=== PATIENT | male | born 1980 | race Two or more races ===

== ENCOUNTER 2019-09-20 15:40 | Emergency (ER) | payer BC ==
[2019-09-20 16:55] LABS: ABS Eosinophils 0.3 10^3/ul (0-0.6); ABS Lymphocytes 1.9 10^3/ul (1.0-4.8); ABS Monocytes 0.7 10^3/ul (0-0.8); ABS Neutrophils 3.2 10^3/ul (1.5-7.7); Eosinophil % 4.2 %; Hematocrit 42 % (42-52); Lymphocyte % 30.7 %; Mean Corpuscular HGB Conc 36 g/dL (31-36); Mean Corpuscular Hemoglobin 32 pg (27-31); Mean Corpuscular Volume 90 fL (80-94); Mean Platelet Volume 7.6 fL (7.4-10.4); Nucleated Red Blood Cells % 0.1; Platelet Count 204 10^3/uL (150-450); Red Blood Count 4.67 10^6 /uL (4.18-5.48); Red Cell Distribution Width 13 % (10-15); White Blood Count 6.1 10^3/uL (3.5-10.8)
[2019-09-20 17:11] LABS: ALT 39 U/L (7-52); Albumin 4.7 g/dL (3.2-5.2); Albumin/Globulin Ratio 1.8 (1-3); Alkaline Phosphatase 44 U/L (34-104); BUN/Creatinine Ratio 17.5 (8-20); Blood Urea Nitrogen 18 mg/dL (6-24); C Reactive Protein 3.93 mg/L (<8.01); CO2 Carbon Dioxide 28 mmol/L (22-32); Calcium 9.8 mg/dL (8.6-10.3); Chloride 105 mmol/L (101-111); EGFR African American 98.9 (>60); EGFR Non-African American 81.7 (>60); Globulin 2.6 g/dL (2-4); Glucose 83 mg/dL (70-100); Sodium 139 mmol/L (135-145); Total Protein 7.3 g/dL (6.4-8.9)
[2019-09-20 17:59] LABS: Anion Gap 6 mmol/L (2-11)
[2019-09-20] MEDS ORDERED: Levalbuterol 1.25MG/0.5ML NEB INH ONE (19:31)
[2019-09-20] MEDS ORDERED: Dexamethasone TAB* 4 MG PO ONE (19:32)
--- NOTE | 2019-09-20 19:46 | ED ---
Respiratory - HPI Summary HPI Summary: 38-year-old male presents with cough for the past week. Has a history of asthma. States has been smoking occasionally and that has made the cough worst. Has been using his inhaler with minimal relief. States cough sometimes dry and sometimes productive. He denies any fevers or chills. No abdominal pain. no n/v. Denies any chest pain. He states he feels bronchoconstrictive. denies any sore throat. admits to occasionally shortness of breath when he coughs. he does not vape. - History of Current Complaint Chief Complaint: EDShortnessOfBreath Stated Complaint: COUGH/CONGESTION/SOB PER PT Time Seen by Provider: 09/20/19 19:22 Pain Intensity: 1 Sputum Amount: Small Sputum Color: Green - Allergy/Home Medications Allergies/Adverse Reactions: Allergies Allergy/AdvReac Type Severity Reaction Status Date / Time No Known Allergies Allergy Verified 09/20/19 15:45 Home Medications: Home Medications Albuterol HFA INHALER* [Ventolin HFA Inhaler*] 1 - 2 puff INH Q4HR PRN 09/20/19 [History Confirmed 09/20/19] PMH/Surg Hx/FS Hx/Imm Hx Endocrine/Hematology History: Denies: Hx Anticoagulant Therapy Respiratory History: Reports: Hx Asthma - INTERMITTENT - Immunization History Date of Influenza Vaccine: Fall 2018 Infectious Disease History: No Infectious Disease History: Denies: Traveled Outside the [place] in Last 30 Days - Family History Known Family History: Positive: Non-Contributory - Social History Alcohol Use: Weekly Substance Use Type: Reports: None Hx Tobacco Use: Yes Smoking Status (MU): Light Every Day Tobacco Smoker Review of Systems Negative: Fever Negative: Chest Pain Positive: Shortness Of Breath, Cough Negative: Abdominal Pain All Other Systems Reviewed And Are Negative: Yes Physical Exam Triage Information Reviewed: Yes Vital Signs On Initial Exam: Initial Vitals Temp Pulse Resp BP Pulse Ox 97.6 F 100 18 128/89 95 09/20/19 15:44 09/20/19 15:44 09/20/19 15:44 09/20/19 15:44 09/20/19 15:44 Vital Signs Reviewed: Yes Appearance: Positive: Well-Appearing Skin: Positive: Warm, Dry Head/Face: Positive: Normal Head/Face Inspection Eyes: Positive: Normal, EOMI, BEATRIZ, Conjunctiva Clear ENT: Positive: Normal ENT inspection, Pharynx normal, TMs normal Respiratory/Lung Sounds: Positive: Breath Sounds Present, Wheezes Cardiovascular: Positive: Normal, RRR Abdomen Description: Positive: Nontender, Soft Bowel Sounds: Positive: Present Musculoskeletal: Positive: Normal Neurological: Positive: Normal Psychiatric: Positive: Normal Procedures - Sedation Patient Received Moderate/Deep Sedation with Procedure: No Diagnostics - Vital Signs Vital Signs Temp Pulse Resp BP Pulse Ox 09/20/19 19:34 18 09/20/19 19:23 130/86 09/20/19 17:47 97.9 F 92 18 121/89 96 09/20/19 15:44 97.6 F 100 18 128/89 95 - Laboratory Lab Results: Lab Results 09/20/19 09/20/19 09/20/19 Range/Units 16:46 16:46 16:46 WBC 6.1 (3.5-10.8) 10^3/uL RBC 4.67 (4.18-5.48) 10^6 /uL Hgb 15.0 (14.0-18.0) g/dL Hct 42 (42-52) % MCV 90 (80-94) fL MCH 32 H (27-31) pg MCHC 36 (31-36) g/dL RDW 13 (10-15) % Plt Count 204 (150-450) 10^3/uL MPV 7.6 (7.4-10.4) fL Neut % (Auto) 52.9 % Lymph % (Auto) 30.7 % Jennings % (Auto) 11.5 % Eos % (Auto) 4.2 % Baso % (Auto) 0.7 % Absolute Neuts (auto) 3.2 (1.5-7.7) 10^3/ul Absolute Lymphs (auto) 1.9 (1.0-4.8) 10^3/ul Absolute Monos (auto) 0.7 (0-0.8) 10^3/ul Absolute Eos (auto) 0.3 (0-0.6) 10^3/ul Absolute Basos (auto) 0.0 (0-0.2) 10^3/ul Absolute Nucleated RBC 0.0 10^3/ul Nucleated RBC % 0.1 Sodium 139 (135-145) mmol/L Potassium TNP Chloride 105 (101-111) mmol/L Carbon Dioxide 28 (22-32) mmol/L Anion Gap 6 (2-11) mmol/L BUN 18 (6-24) mg/dL Creatinine 1.03 (0.67-1.17) mg/dL Est GFR ( Amer) 98.9 (>60) Est GFR (Non-Af Amer) 81.7 (>60) BUN/Creatinine Ratio 17.5 (8-20) Glucose 83 (70-100) mg/dL Lactic Acid 0.9 (0.5-2.0) mmol/L Calcium 9.8 (8.6-10.3) mg/dL Total Bilirubin 0.30 (0.2-1.0) mg/dL AST TNP ALT 39 (7-52) U/L Alkaline Phosphatase 44 (34-104) U/L Troponin I 0.00 (<0.03) ng/mL C-Reactive Protein 3.93 (<8.01) mg/L Total Protein 7.3 (6.4-8.9) g/dL Albumin 4.7 (3.2-5.2) g/dL Globulin 2.6 (2-4) g/dL Albumin/Globulin Ratio 1.8 (1-3) Result Diagrams: 09/20/19 16:46 09/20/19 16:46 Lab Statement: Any lab studies that have been ordered have been reviewed, and results considered in the medical decision making process. - Radiology chest Radiology Interpretation Completed By: Radiologist Summary of Radiographic Findings: IMPRESSION: No active cardiopulmonary disease is noted. Re-Evaluation - Re-Evaluation First Eval Re-Evaluation Time: 20:13 Change: Improved Comment: feeling better Disposition - Course Course Of Treatment: 38-year-old male presents with cough for the past week. Has a history of asthma. States has been smoking occasionally and that has made the cough worst. Has been using his inhaler with minimal relief. States cough sometimes dry and sometimes productive. He denies any fevers or chills. No abdominal pain. no n/v. Denies any chest pain. He states he feels bronchoconstrictive. On exam some wheezes noted. lab wnl. Chest x-ray normal. gave dose of decadron. We'll discharge with prednisone. told to est care with primary. Patient understands and agrees with plan. - Differential Dx - Cardiopulmonary Differential Diagnoses - Cardiopulmonary: Asthma, Bronchitis, Lower Resp Infection - Diagnoses Provider Diagnoses: Asthma, Bronchitis Discharge ED - Sign-Out/Discharge Documenting (check all that apply): Patient Departure - Discharge Plan Condition: Good Disposition: HOME Prescriptions: Albuterol HFA INHALER* [Ventolin HFA Inhaler*] 1 - 2 puff INH Q4H PRN #1 mdi PRN Reason: Shortness Of Breath Benzonatate CAP* [Tessalon 100 MG CAP*] 100 mg PO TID #21 cap predniSONE 50 mg TAB [Deltasone 50 mg TAB] 50 mg PO DAILY #4 tab Patient Education Materials: Acute Bronchitis (ED) Forms: *Work Release Referrals: [facility] [place] [facility] [Outside] Additional Instructions: Use Tessalon three times a day for cough Use inhaler one puff every 4 hours for cough as needed Take steroid once a day for 4 days Use saline in the nose establish care with primary to follow up Return to ED if develop any new or worsening symptoms - Billing Disposition and Condition Condition: GOOD Disposition: Home
[2019-09-20 20:46] VITALS: BP 124/84
== END 2019-09-20 20:35 | disposition home or self-care (01) ==
LOC: ED 15:40
DX: J45.909 Unspecified asthma, uncomplicated (principal); R05 Cough; R06.02 Shortness of breath; F17.210 Nicotine dependence, cigarettes, uncomplicated
CPT/HCPCS: 36415; 71046; 80053; 83605; 84484; 85025; 86140; 99283; A9270-GY; J8540

== ENCOUNTER 2020-08-06 22:08 | Observation (INO) ==
[2020-08-06] MEDS ORDERED: Famotidine IV 10 MG/ML 2 ml VIAL (20 mg) IV SLOW PU ONE (22:31)
[2020-08-06] MEDS ORDERED: methylPREDNISolone 125 mg 2 ML VIAL IV ONE (22:31)
[2020-08-06] MEDS ORDERED: diPHENhydraMINE IV 50 MG/ML 1 ml VIAL (BENADRYL) SLOW PUSH ONE (22:32)
[2020-08-06] MEDS ORDERED: Albuterol/Ipratropium NEB.SOL (2.5/0.5 MG) 3 ML NEB.SOLN INH ONE (22:49)
[2020-08-06] MEDS ORDERED: Albuterol 2.5mg/3 ml (0.083%) NEB.SOLN INH ONE (23:30)
[2020-08-06 23:52] LABS: ABS Eosinophils 0.1 10^3/ul (0-0.6); ABS Lymphocytes 2.4 10^3/ul (1.0-4.8); ABS Monocytes 0.7 10^3/ul (0-0.8); ABS Neutrophils 7.9 10^3/ul (1.5-7.7); Eosinophil % 1.2 %; Hematocrit 42 % (42-52); Hemoglobin 14.1 g/dL (14.0-18.0); Lymphocyte % 21.5 %; Mean Corpuscular HGB Conc 34 g/dL (31-36); Mean Corpuscular Hemoglobin 31 pg (27-31); Mean Corpuscular Volume 90 fL (80-94); Mean Platelet Volume 7.9 fL (7.4-10.4); Platelet Count 209 10^3/uL (150-450); Red Blood Count 4.61 10^6 /uL (4.18-5.48); Red Cell Distribution Width 13 % (10-15); White Blood Count 11.2 10^3/uL (3.5-10.8)
[2020-08-07 00:10] LABS: ALT 53 U/L (7-52); AST 68 U/L (13-39); Albumin 3.9 g/dL (3.2-5.2); Albumin/Globulin Ratio 1.8 (1-3); Alkaline Phosphatase 40 U/L (34-104); Anion Gap 7 mmol/L (2-11); Blood Urea Nitrogen 20 mg/dL (6-24); CO2 Carbon Dioxide 23 mmol/L (22-32); Calcium 8.7 mg/dL (8.6-10.3); Chloride 108 mmol/L (101-111); EGFR African American 96.2 (>60); EGFR Non-African American 79.5 (>60); Globulin 2.2 g/dL (2-4); Glucose 105 mg/dL (70-100); Potassium 3.3 mmol/L (3.5-5.0); Sodium 138 mmol/L (135-145); Total Protein 6.1 g/dL (6.4-8.9)
[2020-08-07] MEDS ORDERED: Furosemide 20 mg/2 ml IV VIAL IV SLOW PU ONE (01:23)
[2020-08-07] MEDS ORDERED: diPHENhydraMINE 25 mg TAB PO PRN (01:26)
[2020-08-07] MEDS ORDERED: Ondansetron 4 mg VIAL 2 MG/ML 2 ml VIAL IV PRN (01:26)
[2020-08-07] MEDS ORDERED: Albuterol 2.5mg/3 ml (0.083%) NEB.SOLN INH PRN (01:30)
[2020-08-07 03:18] LABS: Magnesium 1.7 mg/dL (1.9-2.7)
[2020-08-07] MEDS: KCL 10 MEQ/50 ML IVPREMIX 10 MEQ/50 ML BAG IV SCH ×3 (03:30→06:28)
[2020-08-07] MEDS ORDERED: Magnesium Sulfate 2 gm BAG 2 GM/50 ML BAG IVPB ONE (03:55)
[2020-08-07 04:13] LABS: Troponin I 0.36 ng/mL (<0.03)
[2020-08-07] MEDS: diPHENhydraMINE IV 50 MG/ML 1 ml VIAL (BENADRYL) IV SCH ×4 (04:27→20:47)
[2020-08-07 06:23] LABS: ABS Lymphocytes 0.7 10^3/ul (1.0-4.8); ABS Monocytes 0.2 10^3/ul (0-0.8); ABS Neutrophils 10.3 10^3/ul (1.5-7.7); Eosinophil % 0.1 %; Hematocrit 43 % (42-52); Hemoglobin 14.2 g/dL (14.0-18.0); Lymphocyte % 6.2 %; Mean Corpuscular HGB Conc 33 g/dL (31-36); Mean Corpuscular Hemoglobin 30 pg (27-31); Mean Corpuscular Volume 90 fL (80-94); Platelet Count 223 10^3/uL (150-450); Red Blood Count 4.72 10^6 /uL (4.18-5.48); Red Cell Distribution Width 13 % (10-15); White Blood Count 11.2 10^3/uL (3.5-10.8)
[2020-08-07 06:28] LABS: INR 0.99 (0.82-1.09)
[2020-08-07] MEDS: methylPREDNISolone SOD 40 mg/ml 1 ml VIAL IV SCH ×3 (06:28→23:52)
[2020-08-07 06:41] LABS: Cholesterol 207 mg/dL; HDL Cholesterol 53.3 mg/dL; LDL Cholesterol 142 mg/dL; Triglycerides 59 mg/dL
[2020-08-07 06:46] LABS: Troponin I 0.37 ng/mL (<0.03)
[2020-08-07 08:56] LABS: Anion Gap 10 mmol/L (2-11); BUN/Creatinine Ratio 19.4 (8-20); Blood Urea Nitrogen 20 mg/dL (6-24); CO2 Carbon Dioxide 19 mmol/L (22-32); Calcium 8.7 mg/dL (8.6-10.3); Chloride 106 mmol/L (101-111); EGFR African American 98.3 (>60); EGFR Non-African American 81.3 (>60); Glucose 166 mg/dL (70-100); Magnesium 2.9 mg/dL (1.9-2.7); Potassium 4.5 mmol/L (3.5-5.0); Sodium 135 mmol/L (135-145)
[2020-08-07] MEDS: Famotidine IV 10 MG/ML 2 ml VIAL (20 mg) IV SLOW PU SCH ×2 (09:28→20:47)
[2020-08-07 09:42] LABS: Troponin I 0.36 ng/mL (<0.03)
[2020-08-07] MEDS ORDERED: Furosemide 20 mg/2 ml IV VIAL IV ONE (09:53)
[2020-08-07] MEDS ORDERED: Furosemide 40 mg/4 ml IV VIAL IV SLOW PU ONE (16:32)
[2020-08-08] MEDS: diPHENhydraMINE IV 50 MG/ML 1 ml VIAL (BENADRYL) IV SCH ×2 (03:52→08:35)
[2020-08-08 05:36] LABS: BUN/Creatinine Ratio 22.3 (8-20); Calcium 9.6 mg/dL (8.6-10.3); EGFR African American 89.3 (>60); EGFR Non-African American 73.8 (>60); Potassium 4.1 mmol/L (3.5-5.0)
[2020-08-08] MEDS: methylPREDNISolone SOD 40 mg/ml 1 ml VIAL IV SCH (05:51)
[2020-08-08] MEDS: Famotidine IV 10 MG/ML 2 ml VIAL (20 mg) IV SLOW PU SCH (08:35)
[2020-08-08] MEDS: Albuterol/Ipratropium NEB.SOL (2.5/0.5 MG) 3 ML NEB.SOLN INH SCH ×2 (16:26→19:02)
[2020-08-09] MEDS ORDERED: diPHENhydraMINE 25 mg TAB PO PRN (01:20)
[2020-08-09 09:04] VITALS: BP 103/59
[2020-08-09 18:20] LABS: Complement CH50 45 U/mL (30-75)
== END 2020-08-09 11:00 | disposition home or self-care (01) ==
LOC: ED 22:08 → INTOOBSV 08-07 01:09 → ICU 08-07 01:09
PROVIDERS: ADMIT Hospitalist; ATTEND Internal Medicine